=== PATIENT | female | born 1985 | race Hispanic/Latino ===

== ENCOUNTER 2019-05-04 06:44 | Day surgery (SDC) | payer SELFPAY ==
[2019-05-04] MEDS ORDERED: Ringers Lactate 1,000 ML IV ONE (08:04)
[2019-05-04] MEDS ORDERED: NA CHLORIDE 0.9% 1,000 ML ONE (09:31)
[2019-05-04] MEDS: LIDOCAINE 1% W/EPI 1:100,000 MDV 50 ML VIAL ONE ×2 (09:34→09:37)
[2019-05-04] MEDS ORDERED: MIDAZOLAM HCL 2 MG/2 ML INJ ONE (09:47)
[2019-05-04] MEDS ORDERED: PROPOFOL 200 MG/20 ML VIAL IV ONE ×2 (09:47→10:10)
[2019-05-04] MEDS ORDERED: FENTANYL CITR 100 MCG/2 ML ONE (09:47)
[2019-05-04] MEDS ORDERED: LIDOCAINE 2% MPF 5 ML VIAL ONE (09:47)
[2019-05-04] MEDS ORDERED: KETOROLAC 30 MG/ML INJ ONE (10:20)
--- NOTE | 2019-05-13 03:57 | OP ---
Date of Procedure: 05/04/2019 Surgeon: Stacy Pierce MD Boring Machine Set Up Operator Jig: No publisher assistant. Preoperative Diagnoses: Menorrhagia, morbid obesity, thickened endometrium. Postoperative Diagnoses: Menorrhagia, morbid obesity, thickened endometrium. Procedure Performed: Hysteroscopy, dilation and curettage. Anesthesia: General. Estimated Blood Loss: Minimal. Specimens: Endometrial curettings. Condition: The patient's condition is stable. Indications: The patient is a 33-year-old with polycystic ovarian syndrome, menorrhagia, was seen in the office for evaluation. She had prolonged periods and extremely heavy bleeding. She was diagnos ed with PCOS 5 years ago. Her weight continued to get worse. She was given Ortho Tri-Cyclen when sh e went to the desktop operator 3 years ago for evaluation for bleeding. Once this was controlled, she qu it the medication and she had not seen anybody. On transvaginal ultrasound, the endometrium appeared to be thickened and irregular. On pelvic exam, the uterus was anteflexed, normal, slightly difficul t for evaluation. She was given Depo progesterone 150 mg. Discussed about the increased risk of EIN , atypia and malignancy in the endometrium. She was consented for a D and C to slow down her bleedin g as this has been very prolonged and heavy but primarily to get an endometrial sample to rule out at ypia or malignancy. Once she was consented, she was taken to the OR. Description Of Procedure: After informed consent was verified, she was taken back to the OR, placed in a supine fashion on the operating table. General anesthesia was given with LMA with endotracheal intubation and no complication. The patient was placed in dorsal lithotomy position using Arthur stir rups. Speculum placed to expose the cervix, anterior lip grasped with 2 Allis clamps. After prep x3 with Betadine was done, diagnostic SlimLine hysteroscope was passed through the cervical canal into the uterine cavity. The cavity appeared to be thick, lots of tissue and polypoid tissue seen. Symph ion was used for resection of the polyps and endometrial tissue. No discrete polyp was seen. After all the curettings were performed, the specimen was handed for permanent pathology. Instrument, need le, and sponge counts were done, and were correct at the end of the case. No problems with the fluid deficit. The patient was recovered from anesthesia and taken to PACU in stable condition. She will follow up with me in one week. CARLOS/PRATIMA Voice ID: [id number] Report ID: [id number]
== END 2019-05-04 11:10 | disposition home or self-care (01) ==
LOC: OR 06:44
PROVIDERS: ATTEND Obstetrics & Gynecology
PROC: 0UDB8ZX Extraction of Endometrium, Via Natural or Artificial Opening Endoscopic, Diagnostic (ICD-10-PCS; 2019-05-04)
PROC: 0UB98ZX Excision of Uterus, Via Natural or Artificial Opening Endoscopic, Diagnostic (ICD-10-PCS; principal; 2019-05-04 09:30)
DX: N84.0 Polyp of corpus uteri (principal); N92.1 Excessive and frequent menstruation with irregular cycle; N94.6 Dysmenorrhea, unspecified; N94.11 Superficial (introital) dyspareunia; E28.2 Polycystic ovarian syndrome; E66.01 Morbid (severe) obesity due to excess calories; Z68.43 Body mass index [BMI] 50.0-59.9, adult
CPT/HCPCS: 36415; 84703; 88305; J2250; J2704; J3010; J7030